=== PATIENT | female | born 1985 | race Caucasian/White ===

== ENCOUNTER 2018-03-13 16:17 | Emergency (ER) | payer OTHER ==
[2018-03-13 16:44] VITALS: BP 138/77
--- NOTE | 2018-03-13 17:08 | UC ---
Dental HPI - HPI Summary HPI Summary: Patient is complaining of pain to her right lower tooth since yesterday. She also notes a little bit swelling and neck trauma. She admits to having a bad tooth in that area. She states that she has a history of anxiety and think she will need to be put to sleep at the teeth that are bad removed. She states that she plans on going to Dr. Saunders for this. 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 Hx Last Menstrual Period: 02/26/18 Onset/Duration: Gradual Onset Pain Intensity: 8 Alleviating Factor(s): Nothing - Allergies/Home Medications Allergies/Adverse Reactions: Allergies Allergy/AdvReac Type Severity Reaction Status Date / Time amoxicillin Allergy Diarrhea Verified 03/13/18 16:44 codeine Allergy Vomiting Verified 03/13/18 16:44 Penicillins Allergy Nausea Verified 03/13/18 16:44 tramadol Allergy Dizziness Verified 03/13/18 16:44 Home Medications: Home Medications Acetaminophen [Tylenol Extra Strength] 1,000 mg PO DAILY 03/13/18 [History Confirmed 03/13/18] Naproxen Sodium [Naproxen 220 mg] 220 mg PO DAILY 03/13/18 [History Confirmed ] PMH/Surg Hx/FS Hx/Imm Hx - Additional Past Medical History Additional PMH: allergies, Psychological History: Anxiety, Depression - Surgical History Surgical History: Yes Surgery Procedure, Year, and Place: 2003-RIGHT KNEE SURGERY [place]; 2007- RIGHT KNEE SURGERY [place]; 2011 WISDOM TEETH REMOVED; 2013 RT KNEE SURGERY. RIGHT ANKLE SURGERY 2017 - Family History Known Family History: Positive: Unknown - Social History Lives: With Family Alcohol Use: None Substance Use Type: None Smoking Status (MU): Current Every Day Smoker Type: Cigarettes Amount Used/How Often: 1/2 ppd Have You Smoked in the Last Year: Yes Household Exposure Type: Cigarettes - Immunization History Vaccination Up to Date: Yes Review of Systems Constitutional: Negative Skin: Negative Eyes: Negative ENT: Dental Pain - r lower jaw Respiratory: Negative Cardiovascular: Negative Gastrointestinal: Negative Genitourinary: Negative Motor: Negative Neurovascular: Negative Musculoskeletal: Negative Neurological: Negative Psychological: Negative Is Patient Immunocompromised?: No All Other Systems Reviewed And Are Negative: Yes Physical Exam Triage Information Reviewed: Yes Appearance: Well-Appearing Vital Signs: Initial Vital Signs Temp 99.6 F 03/13/18 16:40 Pulse 79 03/13/18 16:40 Resp 16 03/13/18 16:40 BP 138/77 03/13/18 16:40 Pulse Ox 98 03/13/18 16:40 Vital Signs Reviewed: Yes Eyes: Positive: Conjunctiva Clear ENT: Positive: Normal ENT inspection Dental: Positive: Abscess @ - R lower anterior molar with decay and adjacent gum is tender with mild swelling of jaw that is not fluctuant. Neck: Positive: Supple, Nontender, No Lymphadenopathy Respiratory: Positive: Lungs clear, Normal breath sounds Cardiovascular: Positive: RRR, No Murmur Abdomen Description: Positive: Nontender, No Organomegaly, Soft Bowel Sounds: Positive: Present Musculoskeletal: Positive: No Edema Neurological: Positive: Alert Psychological: Positive: Normal Response To Family, Age Appropriate Behavior Skin Exam: Normal Dental Complaint Course/Dx - Course Course Of Treatment: No concern for Jake angina. Patient is penicillin allergic thus we'll treat with clindamycin and provide dental referral. - Differential Dx/Diagnosis Provider Diagnoses: Decay right lower anterior molar. Nonfluctuant dental abscess right lower anterior molar Discharge - Sign-Out/Discharge Documenting (check all that apply): Patient Departure All imaging exams completed and their final reports reviewed: No Studies - Discharge Plan Condition: Stable Disposition: HOME Prescriptions: Clindamycin Cap(NF) [Clindamycin Cap 300 mg Cap(NF)] 300 mg PO TID #30 cap Patient Education Materials: Dental Abscess (ED) Referrals: Gerri BROWNLEE,Dino Vee [Primary Care Provider] - If Needed Noah Saunders DMD [Doctor of Dental Medicine] - As Soon As Possible - Billing Disposition and Condition Condition: STABLE Disposition: Home
[2018-03-13] MEDS ORDERED: Clindamycin CAP* 150 MG PO ONE (17:21)
== END 2018-03-13 17:30 | disposition home or self-care (01) ==
LOC: UCCORT 16:17
DX: K02.9 Dental caries, unspecified (principal); K04.7 Periapical abscess without sinus; F17.210 Nicotine dependence, cigarettes, uncomplicated; Z88.3 Allergy status to other anti-infective agents; Z88.0 Allergy status to penicillin; Z88.5 Allergy status to narcotic agent
CPT/HCPCS: 99212; A9270-GY; G0463

== ENCOUNTER 2018-08-29 17:39 | Emergency (ER) | payer OTHER ==
[2018-08-29 18:39] VITALS: BP 128/80
--- NOTE | 2018-08-29 19:12 | ED ---
Lower Extremity - HPI Summary HPI Summary: 33 yr old female with the complaint of left knee pain. Onset this afternoon at work. She states that she slipped on a floor and her knee went into the concrete wall. She hit her knee cap, and has bruising. She feels like her knee pops when walking at times. She states her pain is moderate. She states she has crutches. - History of Current Complaint Chief Complaint: UCLowerExtremity Stated Complaint: WC-LEFT KNEE INJURY Time Seen by Provider: 08/29/18 18:57 Hx Last Menstrual Period: 08/19/18 Pain Intensity: 7 - Allergies/Home Medications Allergies/Adverse Reactions: Allergies Allergy/AdvReac Type Severity Reaction Status Date / Time amoxicillin Allergy Diarrhea Verified 08/29/18 18:36 codeine Allergy Vomiting Verified 08/29/18 18:36 Penicillins Allergy Nausea Verified 08/29/18 18:36 tramadol Allergy Dizziness Verified 08/29/18 18:36 PMH/Surg Hx/FS Hx/Imm Hx Endocrine/Hematology History: Reports: Other Endocrine/Hematological Disorders - Factor V Denies: Hx Diabetes Cardiovascular History: Denies: Hx Hypertension, Hx Pacemaker/ICD Respiratory History: Reports: Hx Asthma - IN THE PAST GI History: Reports: Hx Gastroesophageal Reflux Disease - ON MEDICATION, Hx Irritable Bowel - ON NO MEDS FOR History: Denies: Hx Renal Disease Musculoskeletal History: Reports: Hx Arthritis - BILAT. KNEES, Hx Tendonitis - RIGHT ANKLE, Other Musculoskeletal History - miniscus tears and repairs x 3 Right knee, R ankle torn tend Sensory History: Denies: Hx Contacts or Glasses, Hx Hearing Aid Opthamlomology History: Denies: Hx Contacts or Glasses Neurological History: Reports: Hx Headaches Psychiatric History: Reports: Hx Anxiety - NO MEDS, Hx Panic Disorder - ANXIETY/ PANIC ATTACKS - Surgical History Surgery Procedure, Year, and Place: 2003-RIGHT KNEE SURGERY [place]; 2007- RIGHT KNEE SURGERY [place]; 2011 WISDOM TEETH REMOVED; 2013 RT KNEE SURGERY. RIGHT ANKLE SURGERY 2017 Hx Anesthesia Reactions: Yes - VOMITING Infectious Disease History: No Infectious Disease History: Denies: Traveled Outside the [place] in Last 30 Days - Family History Known Family History: Positive: Unknown - Social History Occupation: Employed Full-time Lives: With Family Alcohol Use: Rare Substance Use Type: Reports: None Smoking Status (MU): Current Every Day Smoker Type: Cigarettes Amount Used/How Often: 1/2 ppd Have You Smoked in the Last Year: Yes Review of Systems Constitutional: Negative Positive: Other - left knee pain All Other Systems Reviewed And Are Negative: Yes Physical Exam Triage Information Reviewed: Yes Vital Signs On Initial Exam: Initial Vitals Temp Pulse Resp BP Pulse Ox 97.8 F 70 15 128/80 100 08/29/18 18:36 08/29/18 18:36 08/29/18 18:36 08/29/18 18:36 08/29/18 18:36 Vital Signs Reviewed: Yes Appearance: Positive: Well-Appearing, No Pain Distress Skin: Positive: Warm, Other - bruise over left patella Head/Face: Positive: Normal Head/Face Inspection Eyes: Positive: EOMI ENT: Positive: Normal ENT inspection Neck: Positive: Nontender Respiratory/Lung Sounds: Positive: Other - normal effort Cardiovascular: Negative: Leg Edema Left Abdomen Description: Negative: Distended Musculoskeletal: Positive: Other - left knee patella with mild STS and bruising. No crepitance. No laceration. No effusion. She has intact and 5/ 5 patellar tendon strenght with flexion at the knee. No joint instability and good ROM with out any clicking noted. Neurological: Positive: Sensory/Motor Intact, Alert, Oriented to Person Place, Time, CN Intact II-III, Normal Gait, Speech Normal Psychiatric: Positive: Normal Diagnostics - Vital Signs Vital Signs Temp Pulse Resp BP Pulse Ox 08/29/18 18:36 97.8 F 70 15 128/80 100 - Laboratory Lab Statement: Any lab studies that have been ordered have been reviewed, and results considered in the medical decision making process. - Radiology left knee Radiology Interpretation Completed By: ED Physician - NAD Lower Extremity Course/Dx - Course Course Of Treatment: contusion left knee. patient asks for note for work, and to follow up with Dr Preciado in [place] whom she has seen. She has crutches already at home. - Diagnoses Provider Diagnoses: Contusion of knee, left Discharge - Sign-Out/Discharge Documenting (check all that apply): Patient Departure All imaging exams completed and their final reports reviewed: No - Discharge Plan Condition: Good Disposition: HOME Patient Education Materials: Knee Pain (ED) Forms: *Work Release Referrals: Gerri BROWNLEE,Dino Vee [Primary Care Provider] - Guzman Preciado MD [Medical Doctor] - 1 Day - Billing Disposition and Condition Condition: GOOD Disposition: Home
--- NOTE | 2018-08-30 08:03 | UC ---
- Progress Note Progress Note: xray report left knee: IMPRESSION: No fracture or effusion. Minimal superficial edema is noted. Course/Dx - Diagnoses Provider Diagnoses: Contusion of knee, left Discharge - Sign-Out/Discharge Documenting (check all that apply): Patient Departure All imaging exams completed and their final reports reviewed: Yes - Discharge Plan Condition: Good Disposition: HOME Patient Education Materials: Knee Pain (ED) Forms: *Work Release Referrals: Gerri BROWNLEE,Dino Vee [Primary Care Provider] - Guzman Preciado MD [Medical Doctor] - 1 Day - Billing Disposition and Condition Condition: GOOD Disposition: Home
== END 2018-08-29 19:10 | disposition home or self-care (01) ==
LOC: UCCORT 17:39
DX: S80.02XA Contusion of left knee, initial encounter (principal); F17.210 Nicotine dependence, cigarettes, uncomplicated; Z88.0 Allergy status to penicillin; Z88.5 Allergy status to narcotic agent; W18.40XA Slipping, tripping and stumbling without falling, unspecified, initial encounter; Y92.9 Unspecified place or not applicable
CPT/HCPCS: 99211; G0463

== ENCOUNTER 2019-03-01 07:23 | Day surgery (SDC) | payer OTHER ==
--- NOTE | 2019-02-22 13:00 | HP ---
PREOPERATIVE HISTORY AND PHYSICAL: DATE OF ADMISSION/SURGERY: 03/01/19 DATE OF OFFICE VISIT: 02/20/19 ATTENDING SURGEON: Dr. Guzman Preciado.* (DICTATED BY [facility]) PROCEDURE: Left knee arthroscopic surgery with synovectomy and possible meniscus surgery. CHIEF COMPLAINT: Left knee pain. HISTORY OF PRESENT ILLNESS: The patient is a 34-year-old female who presents to the clinic for left knee pain due to a work-related injury. She has failed conservative measures and had continued pain, therefore the patient has agreed to undergo a left knee arthroscopic surgery with synovectomy and possible meniscus surgery with Dr. Preciado on 03/01/19. PAST MEDICAL HISTORY: Depression, anxiety, and migraines. She was tested for a factor V Leiden in the past and tested negative for hypercoagulability. PAST SURGICAL HISTORY: Right knee surgery x3 in 2001, 2011 and 2012; right ankle x2 in 2016 and 2018. The patient reports nausea with anesthesia, but does well with a scop patch. Otherwise, denies complications with anesthesia. MEDICATIONS: 1. Amitriptyline 100 mg 1 by mouth every day. 2. Citalopram 20 mg 1 by mouth daily. FAMILY HISTORY: Positive for diabetes, heart disease, hypertension, cancer and factor V Leiden. She does have a paternal uncle with history of DVT. SOCIAL HISTORY: She lives with her spouse. 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 She smokes a cigar a day. She quit smoking cigarettes about 6 months ago. She reports occasional alcohol consumption. She is right hand dominant. REVIEW OF SYSTEMS: A 14-point review of systems was reviewed with the patient. Positive for current complaint, otherwise negative. Denies numbness, tingling, fever, chills, chest pain, shortness of breath. Personal history of DVT or PE. Denies history of bleeding disorder. PHYSICAL EXAMINATION GENERAL: A 34-year-old well-developed, well-nourished female, in no acute distress. VITAL SIGNS: Height 63, weight 157. Blood pressure 130/62, respiratory rate 18 , BMI 27.8. HEENT: Normocephalic, atraumatic. PERRLA. Throat clear. NECK: Supple. PULMONARY: Lungs are clear to auscultation bilaterally. No wheezing, rhonchi, or rales. CARDIO: Regular rate and rhythm. S1, S2. No murmurs, gallops, or rubs. No edema. ABDOMEN: Positive bowel sounds. Soft, nontender. NEURO: Alert and oriented x3. Cranial nerves grossly intact. MUSCULOSKELETAL: Skin is intact. No warmth or erythema. Tenderness over the anterior knee as well as the medial joint line. Range of motion 0 to 120. Stable varus and valgus stress. Stable Marlin. Negative posterior drawer. Calves soft and nontender. No obvious effusion. A +5/5 strength to ankle dorsiflexion and plantarflexion. A +2 DP pulse. Sensation intact to light touch distally. DIAGNOSTIC STUDIES: MRI revealed no obvious meniscus tearing. The ACL and PCL are intact as well as a collateral ligament. ASSESSMENT AND PLAN: The patient is scheduled to undergo a left knee arthroscopic surgery with synovectomy, possible meniscus surgery with Dr. Preciado on 03/01/19. She will follow up in 10 to 14 days postop for followup and suture removal. Percocet will be used for postop pain management. [facility] [id number]/[facility] #: [id number] [facility]IT[facility]
[~2019-03-01 07:23] MED LIST: Buffered Lidocaine 1% SYRIN* 1 ML/SYRINGE INTRADERM ONE; Famotidine IV* 10 MG/ML 2 ML (20 mg) IV ONE; Lactated Ringers 1000 ML Bag* 1,000 ML IV SCH; Scopolamine 1.5 mg* PATCH TRANSDERM ONE
[2019-03-01] MEDS ORDERED: Propofol* 10 MG/ML 20 ML BTL ONE (08:01)
[2019-03-01] MEDS ORDERED: Dexamethasone IV* 4 MG/ML 1 ML (4 MG) ONE (08:01)
[2019-03-01] MEDS ORDERED: Lidocaine 2% PF * 5 ML VIAL ONE (08:01)
[2019-03-01] MEDS ORDERED: Ketorolac INJ* 30 MG/ML 1 ML VIAL ONE (08:01)
[2019-03-01] MEDS ORDERED: Ondansetron INJ* 2 MG/ML VIAL ONE (08:01)
[2019-03-01] MEDS ORDERED: Midazolam* 1 MG/ML 5 ML VIAL (5 MG) ONE (08:02)
[2019-03-01] MEDS ORDERED: fentaNYL* 50 MCG/ML 2 ML VIAL (100 MCG VIAL) ONE ×2 (08:02→10:33)
[2019-03-01] MEDS ORDERED: KETAMINE HCL* 50 MG/ML 10 ML VIAL ONE (08:02)
[2019-03-01] MEDS ORDERED: Scopolamine 1.5 mg* PATCH ONE (08:07)
[2019-03-01] MEDS ORDERED: ceFAZolin 2 GM in NS PREMIX(*) 2 GM/100 ML BAG IVPB ONE (08:07)
[2019-03-01] MEDS ORDERED: Famotidine IV* 10 MG/ML 2 ML (20 mg) ONE (08:07)
[2019-03-01] MEDS ORDERED: Lidocaine 1% w EPI 1:200,000* SDV 30 ML VIAL ONE (08:31)
[2019-03-01] MEDS ORDERED: Ropivacaine 0.2% * 2 MG/ML VIAL ONE (08:32)
[2019-03-01] MEDS ORDERED: Buffered Lidocaine 1% SYRIN* 1 ML/SYRINGE INTRADERM ONE (08:40)
[2019-03-01] MEDS ORDERED: Ondansetron INJ* 2 MG/ML VIAL IV PRN (10:08)
[2019-03-01] MEDS ORDERED: Naloxone* 0.4 MG/ML 1 ML VIAL IV PRN (10:08)
[2019-03-01] MEDS ORDERED: oxyCODONE/Acetamin 5/325 MG* TAB ONE (10:33)
[2019-03-01] MEDS: fentaNYL* 50 MCG/ML 2 ML VIAL (100 MCG VIAL) IV PRN ×2 (10:35→10:51)
--- NOTE | 2019-03-01 11:13 | OP ---
OPERATIVE REPORT: DATE OF OPERATION: 03/01/19 DATE OF : 89 SURGEON: Guzman Preciado MD. HIM DIRECTOR: [facility] Bedolla. ANESTHESIOLOGIST: Dr. Vale. ANESTHESIA: General. PRE-OP DIAGNOSES: Left knee synovitis, impingement, and possible meniscus tear. POST-OP DIAGNOSES: Left knee synovitis, impingement, possible meniscus tear, and mild patellar chond rosis. OPERATIVE PROCEDURE: 1. Left knee arthroscopy with synovectomy of the medial, lateral, and anterior compartments. 2. Chondroplasty of the patella. 3. Partial medial and partial lateral meniscectomy. COMPLICATIONS: None. ESTIMATED BLOOD LOSS: Minimal. INDICATIONS: Ms. Chaudhry is a 34-year-old female with persistent knee pain after an injury that happe spring in August 2018. She has failed conservative management including physical therapy, anti-inflam matories, and she has elected to proceed with surgical treatment. After obtaining worker's Comp appr oval, she is approved for surgery as above. Risks and benefits were discussed at length included, bu t not limited to, bleeding; infection; damage to nerves, vessels, surrounding structures; wound nonhe aling; persistent pain; need for further surgery; scarring; stiffness; persistent pain; and risk of a nesthesia. DESCRIPTION OF PROCEDURE: The patient was greeted in the preoperative area by the attending surgeon. Correct extremity was marked and consent was confirmed. The patient was brought back to the operat ing suite where she was placed in the supine position on the operating table and underwent general an esthesia and LMA intubation, after which she was appropriately positioned on the bed. The lateral po st was positioned. An unsterile tourniquet was placed high on the proximal thigh. The left leg was then prepped and draped in the usual sterile fashion beginning with chlorhexidine soap, scrub, and al cohol wipe and a final prep with ChloraPrep. After an appropriate surgical pause indicating side, site, procedure, and administration of antibioti cs, the knee was intra-articularly injected with 1% lidocaine with epi. The anterolateral portal was made sharply with an 11 blade. The scope was introduced into the joint. Joint was examined. There was abundant synovitis and plica that was present anteriorly, medially, and laterally. The anterior medial portal was made in outside-in fashion. A shaver was used to debride back the abundant synovit is. Hemostasis was maintained using electrocautery device. The patellofemoral joint was examined. The trochlea had grade 0 changes. Medial and lateral gutters were intact. The very medial portion o f the patella had a small area of grade 2 changes with unstable flaps. This was debrided back using a shaver. The medial compartment was examined. There were grade 0 to 1 changes. There was a small flap about the root of the meniscus. It was debrided back using the shaver. Care was taken not to d amage the cartilage, although she had soft cartilage about the medial femoral condyle with grade 0 to 1 changes. The knee was then placed in [id number] position and the joint was examined. The lat eral root had some unstable fraying, and this was debrided back as well. The remainder of the menisc us was intact with some peripheral fraying. The final images were obtained. The knee was thoroughly lavaged and removed of any loose debris. The wound was copiously irrigated with sterile saline. The portals were closed with 3-0 nylon in interrupted fashion. The skin was injected with 0.25% ropivac elvira superficially and then in joint intra-articularly. Sterile dressings were applied. A Cryo/Cuff was applied. She was awoken from anesthesia and transferred to PACU in stable condition. POSTOPERATIVE PLAN: She will be weightbearing as tolerated. She will be discharged on pain medicati ons. The patient has a family history of factor V Leiden. She states she has had no personal histor y of blood clot. She was told that she was protected. We will send her home on double strength aspi rin. I will see the patient back in 10 to 14 days. [id number]/[facility] #: [id number]
[2019-03-01 12:02] VITALS: BP 108/70
[2019-03-04] MEDS ORDERED: Scopolamine PATCH Remove* 1 NOTE MISC PATCH OFF ONE (06:00)
== END 2019-03-01 12:05 | disposition home or self-care (01) ==
LOC: OR 07:23
PROVIDERS: ATTEND Orthopaedic Surgery
DX: S83.242A Other tear of medial meniscus, current injury, left knee, initial encounter (principal); S83.282A Other tear of lateral meniscus, current injury, left knee, initial encounter; X58.XXXA Exposure to other specified factors, initial encounter; Y92.9 Unspecified place or not applicable; M93.862 Other specified osteochondropathies, left lower leg; Z72.0 Tobacco use; F41.8 Other specified anxiety disorders; D68.51 Activated protein C resistance
CPT/HCPCS: 81025; A9270-GY; J0690; J1100; J1885; J2001; J2250; J2405; J2704; J2795; J3010

== ENCOUNTER 2019-05-30 08:56 | Day surgery (SDC) | payer OTHER ==
--- NOTE | 2019-05-21 13:49 | HP ---
PREOPERATIVE HISTORY AND PHYSICAL: DATE OF ADMISSION/SURGERY: 05/30/19 DATE OF OFFICE VISIT/ENCOUNTER: 05/11/19 ATTENDING SURGEON: Amelia Bain MD * (DICTATED BY [facility]) PROCEDURE: Right wrist carpal tunnel release. HISTORY OF PRESENT ILLNESS: This is a 34-year-old female, who complains of numbness and tingling in her bilateral hands, worse on the right than on the left. She has had trouble for 4 to 6 months. She does not recall any specific injury. She had nerve conduction studies done recently, which showed moderate carpal tunnel on the right and mild on the left. She has tried using wrist braces at night, but they are not helpful at this point. The pain and numbness are in the median nerve distribution of each hand. The patient would like to proceed with surgical intervention at this time for her right wrist. PAST MEDICAL HISTORY: 1. Depression/anxiety. 2. History of acid reflux. 3. History of factor V Leiden. PAST SURGICAL HISTORY: 1. Right knee x3. 2. Right ankle x2. 3. Left knee x1. 4. Oral surgery. 5. Ear tubes as a child. The patient reports she gets nausea with anesthesia. MEDICATIONS: 1. Amitriptyline HCl 100 mg daily. 2. Citalopram hydrobromide 20 mg daily. ALLERGIES: AMOXICILLIN and PENICILLIN cause stomach pain; LEVAQUIN causes throat swelling; TRAMADOL causes nausea; ASPIRIN, reaction unknown. The patient reports she does not have an allergy to codeine. FAMILY MEDICAL HISTORY: Diabetes, heart disease, hypertension, cancer. 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 She is out of work right now secondary to knee pain. She is a current smoker. Generally, she smokes a cigar per day. She reports quitting smoking cigarettes 6 months ago. Prior to that, she smoked about a half a pack per day for 13 years. She does smoke pot marijuana on occasion and she drinks alcohol on rare occasion. REVIEW OF SYSTEMS: Negative for general, cephalic, cardiovascular, respiratory , GI, , other musculoskeletal, integumentary, endocrine, neurologic, and hematologic symptoms. Infectious Disease: Negative for MRSA, hepatitis C, HIV. PHYSICAL EXAMINATION GENERAL: A well-developed, well-nourished 34-year-old female, in no acute distress. VITAL SIGNS: Height 5 feet 2 inches, weight 169 pounds. Blood pressure 132/68 , pulse rate 78. HEENT: Normocephalic, atraumatic. Pupils are equal, round, and reactive to light and accommodation. Extraocular movements are intact. Throat is clear. NECK: Supple. No palpable lymph nodes. PULMONARY: Lungs are clear to auscultation bilaterally. No wheezes, rales, or rhonchi. CARDIOVASCULAR: Regular rate and rhythm. S1, S2. No murmurs, rubs, or gallops. No edema. ABDOMEN: Positive bowel sounds. Soft, nontender. NEUROLOGICAL: Alert and oriented x3. Cranial nerves II through XII are intact. MUSCULOSKELETAL: On exam of her bilateral hands, there is no thenar wasting. She has mild weakness with thumb abduction on the right compared to the left. She has good motion in her fingers and wrist motion is normal. Sensation is intact to light touch. She has a positive median nerve compression test more pronounced on the right than on the left. DIAGNOSTIC STUDIES: EMG nerve conduction studies show moderate carpal tunnel syndrome on the right and mild on the left. PLAN: The patient is scheduled to undergo a right wrist carpal tunnel release with Dr. Bain on 05/30/19. She will return to the office 10 days postop for followup and suture removal. A prescription for [place] was e-scribed to the patient's pharmacy for postoperative pain management. [facility] [id number]/[facility] #: [id number] LINDA
[~2019-05-30 08:56] MED LIST changes: -Scopolamine 1.5 mg* PATCH TRANSDERM ONE
[2019-05-30] MEDS ORDERED: Famotidine IV* 10 MG/ML 2 ML (20 mg) ONE (09:07)
[2019-05-30] MEDS ORDERED: Midazolam* 1 MG/ML 5 ML VIAL (5 MG) ONE (09:42)
[2019-05-30] MEDS ORDERED: Naloxone* 0.4 MG/ML 1 ML VIAL IV PRN (09:55)
[2019-05-30] MEDS ORDERED: oxyCODONE TAB* 5 MG TAB PO PRN (09:55)
[2019-05-30] MEDS ORDERED: Acetaminophen TAB* 325 MG PO PRN (09:55)
[2019-05-30] MEDS ORDERED: Lidocaine 1% INJ* 10 MG/ML 30 ML SDV ONE (10:17)
[2019-05-30] MEDS ORDERED: Propofol* 10 MG/ML 20 ML BTL ONE (10:19)
[2019-05-30] MEDS ORDERED: Lidocaine 2% PF * 5 ML VIAL ONE (10:26)
[2019-05-30] MEDS ORDERED: Ketorolac INJ* 30 MG/ML 1 ML VIAL ONE (10:27)
[2019-05-30] MEDS ORDERED: DiMENhydriNATE IV* 50 MG/ML VIAL ONE (10:27)
[2019-05-30] MEDS ORDERED: Ondansetron INJ* 2 MG/ML VIAL ONE (10:27)
[2019-05-30 11:23] VITALS: BP 110/71
--- NOTE | 2019-05-30 14:32 | OP ---
DATE OF OPERATION: 05/30/19 [facility] DATE OF : 89 SURGEON: Amelia Bain MD IT RISK AND ASSURANCE SENIOR MANAGER: [facility] Nina ANESTHESIA: Local MAC. PRE-OP DIAGNOSIS: Right carpal tunnel syndrome. POST-OP DIAGNOSIS: Right carpal tunnel syndrome. OPERATIVE PROCEDURE: Right carpal tunnel release. ESTIMATED BLOOD LOSS: Zero. TOURNIQUET TIME: About 10 minutes. INDICATIONS FOR PROCEDURE: [place] is a 34-year-old female who has numbness and tingling in the median nerve distribution of her right hand. She presents for right carpal tunnel release. DESCRIPTION OF PROCEDURE: The patient was brought to the operating room, was given a sedation anesthetic and a local infiltration of 10 cc of 1% plain lidocaine in the palm of her right hand. The skin of her right hand and forearm was prepped and draped in the usual sterile fashion. The hand and forearm were exsanguinated and the tourniquet elevated to 250 mmHg. A longitudinal incision was made in the palm in line with the ring finger. We dissected through the subcutaneous tissue down to the transverse carpal ligament. The ligament was divided sharply with the knife and then more proximally with the scissors. The nerve was dissected free from the surrounding tissue and there is an area of moderate compression at the mid portion of the ligament. The wound was irrigated and the skin edges reapproximated with 4-0 nylon suture. The wound was dressed with Xeroform, 4x4 , Webril, and an Evert wrap. The patient tolerated the procedure well and was brought to the recovery room in good condition. [id number]/[facility] #: [id number] LINDA
== END 2019-05-30 11:23 | disposition home or self-care (01) ==
LOC: OREAST 08:56
PROVIDERS: ATTEND Orthopaedic Surgery
PROC: 01N50ZZ Release Median Nerve, Open Approach (ICD-10-PCS; principal; 2019-05-30 10:30)
DX: G56.01 Carpal tunnel syndrome, right upper limb (principal); F41.8 Other specified anxiety disorders; D68.51 Activated protein C resistance; F17.290 Nicotine dependence, other tobacco product, uncomplicated; K21.9 Gastro-esophageal reflux disease without esophagitis; Z88.6 Allergy status to analgesic agent; Z88.1 Allergy status to other antibiotic agents; Z88.5 Allergy status to narcotic agent
CPT/HCPCS: 81025; J1240; J1885; J2250; J2405; J2704

== ENCOUNTER 2021-11-30 03:34 | Inpatient (IN) ==
[2021-11-30] MEDS ORDERED: Buffered Lidocaine 1% SYRIN 1 ml INTRADERM ONE (04:19)
[2021-11-30] MEDS ORDERED: Lactated Ringers 1000 ml BAG 1,000 ML IV ONE (04:19)
[2021-11-30 04:41] LABS: ABS Basophils 0.1 10^3/ul (0-0.2); ABS Eosinophils 0.1 10^3/ul (0-0.6); ABS Lymphocytes 3.3 10^3/ul (1.0-4.8); ABS Monocytes 0.9 10^3/ul (0-0.8); ABS Neutrophils 9.4 10^3/ul (1.5-7.7); Eosinophil % 0.5 %; Hematocrit 32 % (35-47); Hemoglobin 11.1 g/dL (12.0-16.0); Mean Corpuscular HGB Conc 34 g/dL (31-36); Mean Corpuscular Hemoglobin 32 pg (27-31); Mean Corpuscular Volume 94 fL (80-97); Mean Platelet Volume 8.8 fL (7.4-10.4); Platelet Count 164 10^3/uL (150-450); Red Blood Count 3.43 10^6 /uL (3.70-4.87); Red Cell Distribution Width 13 % (10-15); White Blood Count 13.7 10^3/uL (3.5-10.8)
[2021-11-30 04:44] LABS: Urine Benzodiazepine Screen None Detected (None Detect); Urine Cannabinoids Screen Presumptive Positive (None Detect); Urine Opiates Screen None Detected (None Detect)
[2021-11-30] MEDS ORDERED: Oxytocin in LR 20 UNITS/1,000 ML BAG IVPB ONE (04:50)
[2021-11-30] MEDS ORDERED: Lactated Ringers 1000 ml BAG 1,000 ML IV SCH ×2 (05:00→06:00)
[2021-11-30] MEDS ORDERED: Witch Hazel PAD JAR TOPICAL PRN (05:09)
[2021-11-30] MEDS ORDERED: Dibucaine 1% OINT 28.35 GM TUBE PR PRN (05:09)
[2021-11-30] MEDS ORDERED: Oxytocin in LR 20 UNITS/1,000 ML BAG IVPB SCH (06:00)
[2021-11-30] MEDS ORDERED: Tetan/Diph/Pertus SYR(Tdap) 0.5 ML SYR(BOOSTRIX) use SYR contains LATEX IM ONE (14:00)
[2021-12-01 06:43] LABS: ABS Eosinophils 0.2 10^3/ul (0-0.6); ABS Lymphocytes 3.2 10^3/ul (1.0-4.8); ABS Monocytes 0.8 10^3/ul (0-0.8); ABS Neutrophils 9.6 10^3/ul (1.5-7.7); Eosinophil % 1.1 %; Hematocrit 27 % (35-47); Hemoglobin 9.1 g/dL (12.0-16.0); Lymphocyte % 23.3 %; Mean Corpuscular HGB Conc 34 g/dL (31-36); Mean Corpuscular Hemoglobin 33 pg (27-31); Mean Corpuscular Volume 96 fL (80-97); Mean Platelet Volume 8.8 fL (7.4-10.4); Platelet Count 124 10^3/uL (150-450); Red Blood Count 2.82 10^6 /uL (3.70-4.87); Red Cell Distribution Width 13 % (10-15); White Blood Count 13.9 10^3/uL (3.5-10.8)
[2021-12-01 08:37] VITALS: BP 128/70
[2021-12-01] MEDS ORDERED: Tetan/Diph/Pertus SYR(Tdap) 0.5 ML SYR(BOOSTRIX) use SYR contains LATEX IM ONE (14:57)
[2021-12-03 10:21] LABS: Toxoplasma IgG Antibody Positive (Negative); Toxoplasma IgG Antibody Index 103 IU/mL; Toxoplasma IgM Antibody Negative (Negative)
== END 2021-12-01 15:00 | disposition home or self-care (01) | DRG 560 ==
LOC: MCHOBOUT 03:34 → MCHOB 03:50
PROVIDERS: ADMIT Midwife; ATTEND Midwife